=== PATIENT | male | born 1970 | race Caucasian/White ===

== ENCOUNTER 2022-02-23 13:13 | Emergency (ER) | payer OTHER ==
[~2022-02-23] VITALS: Ht 190.5 cm; Wt 102.1 kg
[2022-02-23] MEDS ORDERED: ERYT1OIN RIGHTEYE (15:27)
== END 2022-02-23 15:32 | disposition home or self-care (01) ==
LOC: ER 13:13
DX: H18.821 Corneal disorder due to contact lens, right eye (principal); Z87.891 Personal history of nicotine dependence
CPT/HCPCS: A9270

== ENCOUNTER 2024-08-04 00:10 | Emergency (ER) | payer OTHER ==
[~2024-08-04] VITALS: Ht 190.5 cm; Wt 102.1 kg
[~2024-08-04 00:10] MED LIST: ERYT1OIN RIGHTEYE
[2024-08-04 00:22] VITALS: BP 174/100
[2024-08-04] MEDS ORDERED: Tetracaine HCl/Pf 0.5% Opth Soln 4 ml RIGHTEYE ONE (00:50)
[2024-08-04] MEDS ORDERED: Fluorescein Sod 1MG Opth Strips RIGHTEYE ONE (00:50)
== END 2024-08-04 01:32 | disposition home or self-care (01) ==
LOC: ER 00:10
DX: S05.01XA Injury of conjunctiva and corneal abrasion without foreign body, right eye, initial encounter (principal); Z87.891 Personal history of nicotine dependence; X58.XXXA Exposure to other specified factors, initial encounter
CPT/HCPCS: 99283; A9270

== ENCOUNTER 2024-10-11 11:27 | Emergency (ER) | payer OTHER ==
[~2024-10-11] VITALS: Ht 190.5 cm; Wt 102.1 kg
[2024-10-11 11:38] VITALS: BP 131/93
[2024-10-11] MEDS ORDERED: Proparacaine 0.5% Opth Soln 15 ML BTL LEFTEYE ONE (12:20)
[2024-10-11] MEDS ORDERED: Fluorescein Sod 1MG Opth Strips LEFTEYE ONE (12:45)
[2024-10-11] MEDS ORDERED: ERYT1OIN LEFTEYE (13:09)
== END 2024-10-11 13:09 | disposition left against medical advice (07) ==
LOC: ER 11:27
DX: S05.02XA Injury of conjunctiva and corneal abrasion without foreign body, left eye, initial encounter (principal); X58.XXXA Exposure to other specified factors, initial encounter; Z53.21 Procedure and treatment not carried out due to patient leaving prior to being seen by health care provider; Z87.891 Personal history of nicotine dependence
CPT/HCPCS: 99283; A9270; A9270-GY